=== PATIENT | male | born 1985 | race Caucasian/White ===

== ENCOUNTER 2016-10-12 19:51 | Emergency (ER) | payer SELFPAY ==
[2016-10-12 20:11] VITALS: BP 125/59
--- NOTE | 2016-10-12 21:01 | PHYS DOC ---
Past Medical History Past Medical History: Pancreatitis, UTI, Other Additional Past Medical Histor: RECOVERING ETOH Past Surgical History: Other Additional Past Surgical Histo: KNEE SURGERY Alcohol Use: None Drug Use: None Adult General Chief Complaint Chief Complaint: GROIN PAIN HPI HPI Patient is a 31 year old male presents emergency department stating that he has had a 3 day history of painful urination and difficulty with urination. He also states that his been having yellow penile drainage. Patient denies any fever, chills or any abdominal pain or nausea vomiting. He states that he is sexually active with one partner. Review of Systems Review of Systems Constitutional: Denies fever or chills [] Eyes: Denies change in visual acuity, redness, or eye pain [] HENT: Denies nasal congestion or sore throat [] Respiratory: Denies cough or shortness of breath [] Cardiovascular: No additional information not addressed in HPI [] GI: Denies abdominal pain, nausea, vomiting, bloody stools or diarrhea [] : dysuria denies hematuria [] Musculoskeletal: Denies back pain or joint pain [] Integument: Denies rash or skin lesions [] Neurologic: Denies headache, focal weakness or sensory changes [] Endocrine: Denies polyuria or polydipsia [] Current Medications Current Medications Current Medications Medications (Trade) Dose Ordered Sig/Zachary Start Time Stop Time Status Last Admin Dose Admin Azithromycin (Zithromax) 1,000 mg 1X ONCE 10/12/16 21:30 10/12/16 21:31 DC Ceftriaxone Sodium (Rocephin Im) 250 mg 1X ONCE 10/12/16 21:30 10/12/16 21:31 DC Metronidazole (Flagyl) 2,000 mg 1X ONCE 10/12/16 21:30 10/12/16 21:31 DC Allergies Allergies Allergies Coded Allergies Type Severity Reaction Last Updated Verified No Known Drug Allergies 10/12/16 No Physical Exam Physical Exam Constitutional: Well developed, well nourished, no acute distress, non-toxic appearance. [] HENT: Normocephalic, atraumatic, bilateral external ears normal, oropharynx moist, no oral exudates, nose normal. [] Eyes: PERRLA, EOMI, conjunctiva normal, no discharge. [] Neck: Normal range of motion, no tenderness, supple, no stridor. [] Cardiovascular:Heart rate regular rhythm, no murmur [] Lungs & Thorax: Bilateral breath sounds clear to auscultation [] Abdomen: Bowel sounds hypoactive, soft, no tenderness, no masses, no pulsatile masses. [] Skin: Warm, dry, no erythema, no rash. [] Back: No tenderness, no CVA tenderness. [] Extremities: No tenderness, no cyanosis, no clubbing, ROM intact, no edema. [] Neurologic: Alert and oriented X 3, normal motor function, normal sensory function, no focal deficits noted. [] Psychologic: Affect normal, judgement normal, mood normal. [] Current Patient Data Vital Signs Vital Signs Date Time Temp Pulse Resp B/P (MAP) Pulse Ox O2 Delivery O2 Flow Rate FiO2 10/12/16 20:11 97.8 74 16 96 Room Air 97.8 Lab Values Laboratory Tests Test 10/12/16 20:44 Urine Collection Type Unknown Urine Color Adelina Urine Clarity Cloudy Urine pH 5.5 Urine Specific Norton 1.025 Urine Protein Negative mg/dL (NEG-TRACE) Urine Glucose (UA) Negative mg/dL (NEG) Urine Ketones (Stick) Negative mg/dL (NEG) Urine Blood Moderate (NEG) Urine Nitrite Negative (NEG) Urine Bilirubin Negative (NEG) Urine Urobilinogen Dipstick 1.0 mg/dL (0.2 mg/dL) Urine Leukocyte Esterase Large (NEG) Urine RBC Occ /HPF (0-2) Urine WBC Tntc /HPF (0-4) Urine Squamous Epithelial Cells Occ /LPF Urine Bacteria 0 /HPF (0-FEW) Urine Mucus Mod /LPF EKG EKG [] Radiology/Procedures Radiology/Procedures [facility] [address] [place] [address] IMAGING REPORT Signed PATIENT: BJ SCHULZ ACCOUNT: [id number] : 1985 LOCATION: ER AGE: 31 SEX: M EXAM STATUS: REG ER ORD. PHYSICIAN: JEREMIAS HERNANDEZ APRN REASON: hematuria PROCEDURE: CT ABDOMEN PELVIS WO CONTRAST History: Hematuria. Comparison: None. Technique: CT of the abdomen and pelvis was performed without intravenous or oral contrast. Exposure: One or more of the following individualized dose reduction techniques were utilized for this examination: 1. Automated exposure control 2. Adjustment of the mA and/or kV according to patient size 3. Use of iterative reconstruction technique Findings: Evaluation of solid organs of the abdomen and pelvis is limited by lack of intravenous contrast. Evaluation of enteric structures may be limited by lack of oral contrast. Liver, spleen, pancreas, gallbladder, and bilateral adrenal glands are unremarkable. No bowel obstruction or inflammation is seen. Appendix is without evidence of inflammation. No free air or free fluid is seen in the abdomen or pelvis. Urinary bladder is unremarkable. No urinary stone is identified. The right ureter may be at least partially duplicated. Impression: No acute abnormality identified in the abdomen or pelvis. No evidence of urinary stone. Electronically signed by: Ramiro Ayoub MD (10/12/2016 9:43 PM) DICTATED and SIGNED BY: RAMIRO AYOUB MD DATE: 10/12/162136 CC: JEREMIAS HERNANDEZ APRN; NO PCP; NON,STAFF ~ [] Course & Med Decision Making Course & Med Decision Making Pertinent Labs and Imaging studies reviewed. (See chart for details) Provided patient with information in regards to urinalysis. Patient does have penile drainage and for he'll be treated for STDs. She'll be provided with Rocephin, Zithromax and Flagyl here in the emergency department. Urinalysis was positive for moderate amount of blood. CT scan was completed with no stone noted. Patient will be discharged home with Cipro. He was instructed that the test results for STDs will be back in approximately 3-4 days. He'll be notified if they are positive. at the bedside was instructed to follow-up with the health Department if the test results are positive. Spoke with him in regards to avoiding sexual intercourse with each other for the next 2 weeks. Signs and symptoms to return back to emergency department as been provided. Also recommended plenty of fluids such as water and cranberry juice. Avoid cranberry juice cocktail, carbonated beverages, citrus fruits and alcohol seizure considered irritants to the bladder. [] Dragon Disclaimer Dragon Disclaimer This electronic medical record was generated, in whole or in part, using a voice recognition dictation system. Departure Departure Impression: Primary Impression: Drainage from penis Additional Impression: Dysuria Disposition: HOME, SELF-CARE Condition: STABLE Referrals: NO PCP (PCP) Patient Instructions: Dysuria-Brief, Sexually Transmitted Disease, [id number] Additional Instructions: Activity as tolerated. You'll be notified in approximately 3-4 days if you're STDs are positive. Avoid sexual intercourse for the next 2 weeks. Drink plenty of fluids such as water and cranberry juice. Avoid cranberry juice cocktail, carbonate beverages, citrus fruits and alcohol sees her considered irritants to the bladder. Medications as prescribed. Follow-up with your primary care physician in the next 7-10 days. Return back to emergency prior signs symptoms of become worse. Scripts Ciprofloxacin Hcl (CIPRO) 500 Mg Tablet 1 TAB PO BID, #14 TAB Prov: JEREMIAS HERNANDEZ APRN 10/12/16 Problem Qualifiers JEREMIAS HERNANDEZ APRN Oct 12, 2016 21:01
[2016-10-12 21:02] LABS: BILIRUBIN,URINE NEGATIVE (NEG); GLUCOSE,URINE NEGATIVE (NEG); NITRITE,URINE NEGATIVE (NEG); PH,URINE 5.5; PROTEIN,URINE NEGATIVE (NEG-TRACE)
[2016-10-12 21:13] LABS: RBC,URINE OCC /HPF (0-2); WBC,URINE TNTC /HPF (0-4)
[2016-10-12 21:14] LABS: BACTERIA,URINE 0 /HPF (0-FEW); SQUAMOUS EPITHELIAL CELL,UR OCC /LPF
[2016-10-12] MEDS ORDERED: AZITHROMYCIN 250 MG TABLET. PO ONE (21:30)
[2016-10-12] MEDS ORDERED: metroNIDAZOLE 500 MG TABLET PO ONE (21:30)
[2016-10-12] MEDS ORDERED: cefTRIAXone IM 250 MG VIAL IM ONE (21:30)
--- NOTE | 2016-10-12 21:46 | RAD ---
History: Hematuria. Comparison: None. Technique: CT of the abdomen and pelvis was performed without intravenous or oral contrast. Exposure: One or more of the following individualized dose reduction techniques were utilized for this examination: 1. Automated exposure control 2. Adjustment of the mA and/or kV according to patient size 3. Use of iterative reconstruction technique Findings: Evaluation of solid organs of the abdomen and pelvis is limited by lack of intravenous contrast. Evaluation of enteric structures may be limited by lack of oral contrast. Liver, spleen, pancreas, gallbladder, and bilateral adrenal glands are unremarkable. No bowel obstruction or inflammation is seen. Appendix is without evidence of inflammation. No free air or free fluid is seen in the abdomen or pelvis. Urinary bladder is unremarkable. No urinary stone is identified. The right ureter may be at least partially duplicated. Impression: No acute abnormality identified in the abdomen or pelvis. No evidence of urinary stone. Electronically signed by: Ramiro Ayoub MD (10/12/2016 9:43 PM)
[2016-10-12] MEDS ORDERED: CIPR500T94 PO (21:56)
== END 2016-10-12 22:23 | disposition home or self-care (01) ==
LOC: ER 19:51
DX: R30.0 Dysuria (principal); R36.9 Urethral discharge, unspecified; R30.9 Painful micturition, unspecified; Z87.440 Personal history of urinary (tract) infections
CPT/HCPCS: 74176; 81001; 87086; 87491; 87591; 96372; 99285; J0696; Q0144